=== PATIENT | male | born 1990 | race Two or more races ===

== ENCOUNTER 2020-12-28 16:04 | Emergency (ER) | payer OTHER ==
[~2020-12-28] VITALS: Ht 170.2 cm; Wt 86.2 kg
[2020-12-28] MEDS ORDERED: AMOX1TAB5 (16:14)
== END 2020-12-28 16:45 | disposition home or self-care (01) ==
LOC: ER 16:04
DX: L02.31 Cutaneous abscess of buttock (principal)